=== PATIENT | male | born 1980 | race Caucasian/White ===

== ENCOUNTER 2017-06-30 22:33 | Emergency (ER) | payer BC, MEDICAID ==
[2017-06-30 23:03] VITALS: RESP 18
[2017-07-01 00:16] VITALS: BP 127/75; PULSE 115; TEMP 101.7; O2SAT 95
--- NOTE | 2017-07-01 00:26 | C.PDOC ---
History Of Present Illness 36 year old male presents to the ER with a complaint of fever and body aches that began today, associated with a cough that began yesterday. Denies abdominal pain, nausea, or vomiting. Time Seen by Provider: 06/30/17 23:05 Chief Complaint (Nursing): Flu-like Symptoms History Per: Patient History/Exam Limitations: no limitations Onset/Duration Of Symptoms: Hrs Current Symptoms Are (Timing): Still Present Location Of Pain: Diffuse Myalgias Associated Symptoms: Fever, Myalgias. denies: Nausea, Vomiting, Other ( Abdominal pain) Ear Symptoms: Bilateral: None Recent travel outside of the [place]: No Past Medical History Reviewed: Historical Data, Nursing Documentation, Vital Signs Vital Signs: Last Vital Signs Temp 101.7 F H 07/01/17 00:16 Pulse 115 H 07/01/17 00:16 Resp 18 07/01/17 00:16 BP 127/75 07/01/17 00:16 Pulse Ox 95 07/01/17 00:26 Family History: States: Unknown Family Hx - Social History Hx Tobacco Use: No Hx Alcohol Use: No Hx Substance Use: No - Immunization History Hx Tetanus Toxoid Vaccination: No Hx Influenza Vaccination: No Hx Pneumococcal Vaccination: No Review Of Systems Constitutional: Positive for: Fever. Negative for: Chills Cardiovascular: Negative for: Chest Pain Respiratory: Positive for: Cough. Negative for: Shortness of Breath Gastrointestinal: Negative for: Nausea, Vomiting, Abdominal Pain Musculoskeletal: Positive for: Other (Body aches) Physical Exam - Physical Exam Appears: Non-toxic, No Acute Distress Skin: Normal Color, Warm, Dry Head: Atraumatic, Normacephalic Eye(s): bilateral: Normal Inspection Ear(s): Bilateral: Normal Oral Mucosa: Moist Throat: Normal, No Erythema, No Exudate Neck: Normal, Supple Chest: Symmetrical, No Tenderness Cardiovascular: Rhythm Regular Respiratory: Normal Breath Sounds, No Rales, No Rhonchi, No Wheezing Gastrointestinal/Abdominal: Soft, No Tenderness Neurological/Psych: Oriented x3, Normal Speech ED Course And Treatment O2 Sat by Pulse Oximetry: 95 (Room air) Pulse Ox Interpretation: Normal Medical Decision Making Medical Decision Making: Flu swab ordered, results were negative. Motrin, claritin, and tamiflu administered. Patient reports improvement of symptoms, will discharge home with Rx and instructions to follow up with PMD for further evaluation or return to the ER if symptoms worsen. Disposition - Disposition Referrals: Rabia Uribe MD [Primary Care Provider] - Disposition: HOME/ ROUTINE Disposition Time: 00:24 Condition: GOOD Additional Instructions: Follow up with the medical doctor/clinic within 1-2 days without fail. Return if worsened. Prescriptions: Ibuprofen [Motrin] 600 mg PO TID #21 tab Oseltamivir [Tamiflu] 75 mg PO BID #9 cap predniSONE [Prednisone] 20 mg PO BID #10 tab Instructions: Influenza (ED) Forms: [facility] ([place]), Work Excuse - Clinical Impression Clinical Impression: Influenza-like illness - PA / PEDIATRIC GENETICIST / Resident Statement MD/DO has reviewed & agrees with the documentation as recorded. - Scribe Statement The provider has reviewed the documentation as recorded by the Scribestrella Navarrete All medical record entries made by the Lioibestrella were at my direction and personally dictated by me. I have reviewed the chart and agree that the record accurately reflects my personal performance of the history, physical exam, medical decision making, and the department course for this patient. I have also personally directed, reviewed, and agree with the discharge instructions and disposition.
== END 2017-07-01 00:39 | disposition home or self-care (01) ==
LOC: C.ER 22:33 → SUPCPDRO 22:33 → C.ER 07-01 00:39
DX: J11.1 Influenza due to unidentified influenza virus with other respiratory manifestations (principal)